=== PATIENT | female | born 1980 | race Caucasian/White ===

== ENCOUNTER 2021-09-15 18:37 | Emergency (ER) | payer MEDICAID, SELFPAY ==
[2021-09-15 18:40] VITALS: BP 154/107; PULSE 124; RESP 18; TEMP 36.4; O2SAT 97; BMI 20.5
[2021-09-15 18:42] VITALS: BP 154/107; PULSE 124; RESP 18; TEMP 36.4; O2SAT 97
--- NOTE | 2021-09-15 18:53 | EDS_ITS ---
HPI History of Present Illness Chief Complaint: Substance Abuse Informant: patient Narrative Narrative: Patient presents secondary to symptoms of alcohol withdrawal. She has a history of pancreatitis. She states yesterday she started getting sensation that she might be developing pancreatitis so she stopped drinking. She is now having withdrawal symptoms but also vomiting and not able to keep anything down. She denies abdominal pain. She has been through alcohol withdrawal previously but never been through a formal detox program. [facility] Medical History Alcohol abuse Anxiety Depression Hx of gastroesophageal reflux (GERD) Pancreatitis Home Medications hydroxyzine HCl 25 mg PO/SL TID PRN 09/15/21 [History Last Taken Unknown] ondansetron 4 mg PO Q8H PRN #10 tab 09/15/21 [Rx Last Taken Unknown] pantoprazole 20 mg PO DAILY 09/15/21 [History Last Taken Unknown] sertraline 25 mg PO DAILY 09/15/21 [History Last Taken Unknown] Allergy/AdvReac Type Severity Reaction Status Date / Time No Known Allergies Allergy Verified 09/15/21 18:37 Social History Smoking Status: Current every day smoker tobacco type: cigarettes ROS ROS ED Constitutional Constitutional ED: Denies chills or fever(s) Eyes Eyes: Denies change in vision ENT ENT ED: Denies sore throat Cardiovascular Cardiovascular: Denies chest pain Respiratory/Chest Respiratory/Chest: Denies cough or dyspnea Gastrointestinal Gastrointestinal: Reports nausea and vomiting; Denies abdominal pain or diarrhea Genitourinary Genitourinary ED: Denies dysuria Musculoskeletal Musculoskeletal: Denies back pain Integumentary Denies rash Neurologic Neurologic: Denies headache(s) or weakness Psychiatric Psychiatric: Reports anxiety; Denies depression Endocrine Endocrinology: Denies polydipsia or polyuria Allergic/Immunologic Allergic/Immunologic ED: Denies urticaria EXAM Physical Exam Const Vital Signs: 09/15/21 18:40 09/15/21 18:42 09/15/21 19:37 Temperature 97.5 F L 97.5 F L Temperature Source Temporal Temporal Pulse Rate 124 H 124 H 91 Respiratory Rate 18 18 17 Blood Pressure 154/107 H 154/107 H 133/83 H Blood Pressure Mean 122 122 99 Pulse Ox 97 97 97 Oxygen Delivery Method Room Air Room Air Room Air 09/15/21 20:00 09/15/21 21:00 Temperature Temperature Source Pulse Rate 87 93 Respiratory Rate 18 18 Blood Pressure 127/75 H 100/88 H Blood Pressure Mean 92 92 Pulse Ox 99 98 Oxygen Delivery Method Room Air Room Air Positive well nourished and well developed General Appearance ED: well developed HEENT Reports moist mucous membranes Eyes PERRL and EOMs intact bilaterally Neck supple Chest Wall inspection of chest normal and palpation of chest normal Resp normal respiratory effort and clear to auscultation bilaterally Cardio Rate: tachycardic GI non-tender Auscultation: hypoactive bowel sounds Palpation: soft Extremity normal to inspection Neuro oriented x3 Sensorium / Orientation: alert Psych mental status grossly normal Skin no rashes or lesions noted MDM MDM MDM Narrative Medical decision making narrative: Patient given IV fluids along with a dose of Ativan and Zofran. Lab work obtained. Urinalysis ordered. Lab Data Attestation: I reviewed the patient's lab results. Labs: Laboratory Results - last 24 hr 09/15/21 09/15/21 09/15/21 18:54 18:54 18:54 WBC 5.2 RBC 4.32 Hgb 14.4 Hct 40.9 MCV 94.7 MCH 33.3 H MCHC 35.2 RDW Std Deviation 43.2 RDW Coeff of Coty 12.3 Plt Count 135 L MPV 9.6 Immature Gran % (Auto) 0.200 Neut % (Auto) 69.8 Lymph % (Auto) 23.4 Pratt % (Auto) 6.0 Eos % (Auto) 0.2 Baso % (Auto) 0.4 Absolute Neuts (auto) 3.6 Absolute Lymphs (auto) 1.21 Nucleated RBC % 0 Sodium 134 L Potassium 3.3 L Chloride 94 L Carbon Dioxide 19.0 L Anion Gap 21 H BUN 12 Creatinine 0.78 Estim Creat Clear Calc 93.61 Est GFR (MDRD) Af Amer 105 Est GFR (MDRD) Non-Af 87 BUN/Creatinine Ratio 15.3 Glucose 126 H Calcium 9.9 Total Bilirubin 2.00 H Direct Bilirubin 0.49 H AST 186 H ALT 94 H Alkaline Phosphatase 101 Total Protein 9.1 H Albumin 4.8 Globulin 4.3 H Lipase 56 L Serum , Qual Urine Color Urine Clarity Urine pH Ur Specific [place] Urine Protein Urine Glucose (UA) Urine Ketones Urine Occult Blood Urine Nitrite Urine Bilirubin Urine Urobilinogen Ur Leukocyte Esterase Urine RBC Urine WBC Ur Squamous Epith Cells Urine Bacteria Urine Mucus Urine Opiates Screen Urine Methadone Screen Ur Barbiturates Screen Ur Phencyclidine Scrn Ur Amphetamines Screen MDMA (Ecstasy) Screen U Benzodiazepines Scrn Urine Cocaine Screen U Cannabinoids Screen Ur Drug Screen Comment Ethyl Alcohol 12.0 09/15/21 09/15/21 09/15/21 18:54 19:20 19:20 WBC RBC Hgb Hct MCV MCH MCHC RDW Std Deviation RDW Coeff of [place] Plt Count MPV Immature Gran % (Auto) Neut % (Auto) Lymph % (Auto) Pratt % (Auto) Eos % (Auto) Baso % (Auto) Absolute Neuts (auto) Absolute Lymphs (auto) Nucleated RBC % Sodium Potassium Chloride Carbon Dioxide Anion Gap BUN Creatinine Estim Creat Clear Calc Est GFR (MDRD) Af Amer Est GFR (MDRD) Non-Af BUN/Creatinine Ratio Glucose Calcium Total Bilirubin Direct Bilirubin AST ALT Alkaline Phosphatase Total Protein Albumin Globulin Lipase Serum , Qual NEGATIVE Urine Color Yellow Urine Clarity Sl. Cloudy Urine pH 6.0 Ur Specific [place] 1.030 Urine Protein 100 H Urine Glucose (UA) Normal Urine Ketones 150 A* Urine Occult Blood 25 H Urine Nitrite Negative Urine Bilirubin 1 H Urine Urobilinogen 4 H Ur Leukocyte Esterase 25 H Urine RBC 0 SEEN Urine WBC 0-5 SEEN Ur Squamous Epith Cells 10-25 SEEN Urine Bacteria 3+ Urine Mucus 3+ Urine Opiates Screen NEGATIVE Urine Methadone Screen NEGATIVE Ur Barbiturates Screen NEGATIVE Ur Phencyclidine Scrn NEGATIVE Ur Amphetamines Screen NEGATIVE MDMA (Ecstasy) Screen NEGATIVE U Benzodiazepines Scrn NEGATIVE Urine Cocaine Screen NEGATIVE U Cannabinoids Screen NEGATIVE Ur Drug Screen Comment Ethyl Alcohol Treatment and Re-Evaluation Narrative: On repeat evaluation patient reports feeling much improved. She is tolerating p.o. at this time. Lab work reviewed and does reveal elevated LFTs with a total bili of 2.0, direct bili 0.49, AST 186, ALT 94. Her lipase is 56. Urine tox screen is negative. EtOH is 12. Urinalysis reveals 150 ketones. At this time patient is not interested in a detox program. She wishes to be discharged home with some nausea medication. I did discuss her degree of dehydration with her as well as likelihood that she has mild alcoholic ketoacidosis with an elevated anion gap. She understands this but is requesting discharge to home. I will write her for [place] and encouraged her to return for any concerns or recurrent symptoms. Discharge Plan Triage Chief Complaint: Substance Abuse ED Provider: Kanika Gutiérrez Dx/Rx/DC Orders Clinical Impression: Alcohol abuse, Vomiting, Alcohol withdrawal Instructions: ED Vomiting (Adult), ED Alcohol Abuse Prescriptions: New ondansetron 4 mg tablet,disintegrating 4 mg PO Q8H PRN (Reason: nausea and vomiting) Qty: 10 RF: 0 No Action pantoprazole 20 mg Tablet,Delayed Release (Dr/Ec) 20 mg PO DAILY RF: 0 sertraline 25 mg Tablet 25 mg PO DAILY RF: 0 hydroxyzine HCl 25 mg PO/SL TID PRN (Reason: Anxiety) RF: 0 Referrals: [facility] [STAFF PHYSICIAN] - As Needed Disposition Disposition: Home, Self Care
[2021-09-15] MEDS: Ondansetron 4 MG/2 ML Vial IV (19:01)
[2021-09-15] MEDS: 0.9% Normal Saline 1,000 ML 1000 ML IV (19:01)
[2021-09-15] MEDS: LORazepam 2 MG/ML Syringe 1 MG IV (19:01)
[2021-09-15 19:19] LABS: Absolute Lymphocyte Count 1.21 X10^3/uL (0.83-4.51); Absolute Neutrophil Count 3.6 X10^3/uL (2.0-7.7); Basophil# 0.02 X10^3/uL; Basophil% 0.4 % (0-1); Eosinophil# 0.01 X10^3/uL; Eosinophils% 0.2 % (0-5); Hematocrit 40.9 % (37-47); Hemoglobin 14.4 g/dL (12.0-15.0); Lymphocyte # 1.21 X10^3/ul (0.83-4.51); Lymphocyte % 23.4 % (19-41); Mean Corp Hgb Conc 35.2 g/dL (32-36); Mean Corpuscular Hgb 33.3 pg (27.0-32.0); Mean Corpuscular Volume 94.7 fL (81-99); Mean Platelet Vol. 9.6 fl (6.2-12.0); Monocyte# 0.31 X10^3/uL; NRBC Flagged by Analyzer 0 % (0-5); Neutrophil % 69.8 % (47-70); Platelet Count 135 K/mm3 (150-450); RBC Distribution Width CV 12.3 % (11.6-14.6); RBC Distribution Width SD 43.2 fl (35.1-43.9); Red Blood Count 4.32 M/mm3 (4.2-5.4); White Blood Count 5.2 K/mm3 (4.4-11.0)
--- NOTE | 2021-09-15 19:30 | CM.ED ---
Social Work Note Reason for Referral: Pt presents to [facility] for detox. SW in to speak with pt. Pt's mother Karolina present in room. Pt gave permission for this worker to talk to her in front of her guest. Pt states she did not initially come to the ED for Detox. Pt's mother Karolina states pt started to withdraw herself from Alcohol last night. Karolina asked for pt to be educated on the detox program. SW informed pt of detox program. Pt states she is really lightheaded and really nervous. Pt states that she has had Pancreatitis before and states she thinks she will fall asleep and not wake up. Pt states she has severe depression and anxiety and panic attacks. Pt states she currently takes medications. SW asked pt about seeing a counselor. Pt states she would like to get a new counselor. SW informed pt that this worker can provide her with counseling resources. SW asked pt about insurance as pt is listed as self-pay. Pt states she has Medicaid. Pt denied any history of suicidal thoughts/plans/ideations. Pt denied any current suicidal thoughts/plans/ideations. SW informed pt to let staff know if she would like to be in the detox program. Pt states understanding. SW back in to pt's room and provided counseling resources. Christine Bailey [employer]CH[employer]ICIAN, [employer]
[2021-09-15 19:33] LABS: Red Blood Cells-Urine 0 SEEN /hpf (0-5)
[2021-09-15 19:34] LABS: Glucose, Dipstick Normal (Normal); Leukocyte Esterase-Dipstick 25 /ul (Negative); Nitrite-Dipstick Negative (Negative); Occult Blood-Urine 25 /ul (Negative); Protein-Dipstick 100 mg/dl (Negative); Urine Clarity Sl. Cloudy (Clear); Urine Urobilinogen 4 mg/dl (Normal)
[2021-09-15 19:37] VITALS: BP 133/83; PULSE 91; RESP 17; O2SAT 97
[2021-09-15 19:45] LABS: Amphetamine Urine VISTA NEGATIVE (<1000 ng/mL); Barbiturate Urine VISTA NEGATIVE (< 200 ng/mL); Benzodiazepine Urine VISTA NEGATIVE (< 200 ng/mL); Cocaine Urine VISTA NEGATIVE (< 300 ng/mL); Ecstacy Urine VISTA NEGATIVE (< 500 ng/mL); Methadone Urine VISTA NEGATIVE (< 300 ng/mL); PCP Urine VISTA NEGATIVE (< 25 ng/mL); THC Urine VISTA NEGATIVE (< 50 ng/mL); Vista UDS pH Range 4
[2021-09-15 19:48] LABS: Ketone-Dipstick 150 mg/dl (Negative); Urine Bilirubin Dipstick 1 mg/dL (Negative)
[2021-09-15 19:52] LABS: Color, Urine Yellow (Yellow)
[2021-09-15 19:55] LABS: Bacteria 3+ /hpf (None Seen); Mucous, Urine 3+ /hpf (<or=2+); Squamous Epithelial Cells - UA 10-25 SEEN /hpf (5-10); White Blood Cells 0-5 SEEN /hpf (0-5)
[2021-09-15 20:00] VITALS: BP 127/75; PULSE 87; RESP 18; O2SAT 99
[2021-09-15 20:10] LABS: AST(SGOT) 186 U/L (15-37); Alanine Aminotransfer ALT/SGPT 94 U/L (13-56); Albumin, Serum 4.8 g/dL (3.2-5.0); Alkaline Phosphatase 101 U/L (45-117); Anion Gap 21 (5-15); BUN 12 mg/dL (7-18); BUN/Creat Ratio 15.3 RATIO (10-20); Bilirubin, Direct 0.49 mg/dL (0.00-0.30); Calcium,Total 9.9 mg/dL (8.5-10.1); Chloride 94 mmol/L (98-107); Creatinine, Serum 0.78 mg/dL (0.55-1.02); EST Glomerular Filtration Rate 87 mL/min (>60); Est Glom Filt Rate - Afr Amer 105 mL/min (>60); Estimated Creatinine Clearance 93.61 ml/min; Globulin 4.3 g/dL (2.2-4.2); Glucose 126 mg/dL (74-106); Lipase 56 U/L (73-393); Potassium 3.3 mmol/L (3.5-5.1); Protein, Total 9.1 g/dL (6.4-8.2); Sodium Level 134 mmol/L (136-145)
[2021-09-15] MEDS: 0.9% Normal Saline 1,000 ML 150 ML IV (20:12)
[2021-09-15 20:37] LABS: Internal QC Validated? YES +Cl - CLEAR BKGD; Pregnancy, Serum, hCG Quali. NEGATIVE Negative
[2021-09-15 21:00] VITALS: BP 100/88; PULSE 93; RESP 18; O2SAT 98
== END 2021-09-15 21:54 | disposition home or self-care (01) ==
PROVIDERS: Emergency Provider Emergency Medicine; Visit Provider Emergency Medicine
DX: F10.139 Alcohol abuse with withdrawal, unspecified (principal); R11.2 Nausea with vomiting, unspecified; F32.A Depression, unspecified; F41.9 Anxiety disorder, unspecified; F17.210 Nicotine dependence, cigarettes, uncomplicated; Z79.899 Other long term (current) drug therapy
CPT/HCPCS: 80048; 80076; 80307; 81001; 82077; 83690; 84703; 85025; 96360; 96361; 99283; J7030; A4216; J2405